=== PATIENT | female | born 1990 | race Caucasian/White ===

== ENCOUNTER 2021-01-28 05:02 | Emergency (ER) | payer BC ==
[~2021-01-28] VITALS: Ht 165.1 cm; Wt 87.0 kg
[2021-01-28 05:50] LABS: BASOPHILS % (AUTO) 0 % (0-1); EOSINOPHILS % (AUTO) 0 % (1-7); LYMPHOCYTES % (AUTO) 3 % (22-44); MEAN CORPUSCULAR HEMOGLOBIN 30.3 pg (27.0-34.8); MEAN CORPUSCULAR HGB CONC 33.8 g/dL (32.4-35.8); MONOCYTES % (AUTO) 5 % (2-9); NEUTROPHILS % (AUTO) 92 % (42-75); PLATELET COUNT 234 x10^3/uL (130-400); RED BLOOD COUNT 4.43 x10^6/uL (3.82-5.3); RED CELL DISTRIBUTION WIDTH 12.3 % (9.6-15.2)
[2021-01-28] MEDS ORDERED: ONDANSETRON 2MG/ML, 2ML ONE (05:54)
[2021-01-28] MEDS ORDERED: MORPHINE SULFATE 4 MG/ML, 1ML ONE ×2 (05:55→08:01)
[2021-01-28] MEDS ORDERED: ONDANSETRON 2MG/ML, 2ML IVPush ONE (06:00)
[2021-01-28] MEDS ORDERED: SODIUM CHLORIDE 0.9% 1,000ML IVBOLUS ONE (06:00)
[2021-01-28] MEDS ORDERED: MORPHINE SULFATE 4 MG/ML, 1ML IVPush PRN (06:00)
[2021-01-28 06:02] LABS: ALANINE AMINOTRANSFERASE 21 U/L (12-78); ALBUMIN 3.8 g/dL (3.4-5.0); ANION GAP 8 mmol/L (5-15); CALCIUM 8.9 mg/dL (8.5-10.1); CHLORIDE 108 mmol/L (98-107); CREATININE 1.03 mg/dL (0.55-1.02)
[2021-01-28 06:06] LABS: ALKALINE PHOSPHATASE 53 U/L (45-117); BILIRUBIN,TOTAL 0.5 mg/dL (0.2-1.0); TOTAL PROTEIN 7.3 g/dL (6.4-8.2)
--- NOTE | 2021-01-28 06:07 | NUR ---
PT UNABLE TO KEEP FOOD OR WATER DOWN WITH ABD PAIN FOR 1-2 DAYS. PT A/O X4 WITH UNLABORED BREATHS. PT ON MONITOR WITH PT VSS. PT MEDICATED PER DEC. PT FRIEND AT BEDSIDE.
[2021-01-28 06:25] LABS: MD NO
--- NOTE | 2021-01-28 06:50 | NUR ---
REPORT RECEIVED FROM MANSOOR NASH FOR TRANSFER OF PATIENT CARE.
--- NOTE | 2021-01-28 06:53 | NUR ---
[employer]IL[employer] APPRENTICE AT BEDSIDE.
--- NOTE | 2021-01-28 07:14 | NUR ---
PATIENT TO IMAGING.
[2021-01-28] MEDS ORDERED: OMNIPAQUE 350 MG/ML, 100ML BOTTLE ONE (07:22)
--- NOTE | 2021-01-28 07:42 | NUR ---
UA COLLECTED VIA STRAIGHT CATH, PATIENT TOLERATED WELL. URINE WALKED TO LAB.
[2021-01-28 07:56] LABS: MICROSCOPIC AUTO
[2021-01-28 08:10] VITALS: BP 115/70
--- NOTE | 2021-01-28 08:37 | NUR ---
Patient given discharge instructions and prescriptions and they have confirmed that they understand the instructions. Patient stable and ambulatory with steady gait from ED with significant other at side.
== END 2021-01-28 08:38 | disposition home or self-care (01) ==
LOC: ED 06:24
DX: N94.6 Dysmenorrhea, unspecified (principal); R10.31 Right lower quadrant pain; R10.11 Right upper quadrant pain
CPT/HCPCS: 36415; 74177; 76830; 80053; 81001; 83690; 84703; 85025; 96361; 96374; 96375; 99285; J2270; J2405; J7030; Q9967